=== PATIENT | female | born 1970 | race Caucasian/White ===

== ENCOUNTER 2024-05-28 18:13 | Emergency (ER) | payer OTHER, SELFPAY ==
[2024-05-28 18:21] VITALS: BP 132/86; PULSE 82; TEMP 36.7; O2SAT 96; BMI 28.2
--- NOTE | 2024-05-28 18:47 | ED.GENADUL1 ---
HPI HPI - General Adult General Chief complaint: Headache Stated complaint: HEADACHE Time Seen by Provider: 05/28/24 18:16 Source: patient Mode of arrival: walk-in History of Present Illness HPI narrative: 53-year-old female presents for headache. Its on the left side of her head and it started at 4:00 this morning. No fever or trauma or stiff neck. She has frequent headaches, more than 15 days a month and she is seeing a neurologist in [place]. She states she had an MRI a few months ago that was normal. No weakness or numbness in her extremities. She took some sumatriptan but it did not help. The pain is continuous and moderate to severe. Related Data Home Medications ?Medication ?Instructions ?Recorded ?Confirmed amitriptyline 25 mg tablet 10 mg PO DAILY 05/28/24 05/28/24 estradiol 1 mg tablet 1 mg PO DAILY 05/28/24 05/28/24 rimegepant 75 mg disintegrating 75 mg PO .every other day 05/28/24 05/28/24 tablet (Nurtec ODT) sumatriptan succinate 50 mg tablet 50 mg PO Q2H PRN migraine headache 05/28/24 05/28/24 Allergies Allergy/AdvReac Type Severity Reaction Status Date / Time meloxicam Allergy Severe Blister Verified 05/28/24 18:21 Opioid HPI Opioid Management Most Recent Opioid Data: No Data to Display Review of Systems ROS Narrative A ten point review of systems is negative except as noted above. [facility] Medical History (Updated 05/28/24 @ 18:47 by Ari Zendejas MD) History of migraine headaches ?Z86.69 - Personal history of other diseases of the nervous system and sense organs (ICD-10) History of migraine headaches ?Z86.69 - Personal history of other diseases of the nervous system and sense organs (ICD-10) Exam Narrative Exam Narrative: Nurses note and vital signs reviewed and patient is not hypoxic. General: The patient appears well and in no apparent distress. Patient is resting comfortably on cart. Skin: Warm, dry, no pallor noted. There is no rash noted. Head: Normocephalic, atraumatic Eye: Normal conjunctiva, no drainage Ears, Nose, Mouth, and Throat: oral mucosa is moist. Nares patent. Cardiovascular: Regular Rate and Rhythm Respiratory: Patient is in no distress, no accessory muscle use, lungs are clear to auscultation, no wheezing, rales or rhonchi Back: non-tender, no CVA tenderness bilaterally to percussion. GI: Soft and nontender Musculoskeletal: The patient has no evidence of calf tenderness, no pitting edema, symmetrical pulses noted bilaterally Neurological: Awake alert and oriented. Upper and lower extremity strength intact. Psychiatric: Cooperative Constitutional Vital Signs, click to edit/add: Last Vital Signs Temp 98.1 F 05/28/24 18:21 Pulse 82 05/28/24 18:21 Resp 16 05/28/24 18:21 BP 132/86 05/28/24 18:21 Pulse Ox 96 05/28/24 18:21 O2 Del Method Room Air 05/28/24 18:21 Course Vital Signs Vital signs: Vital Signs Temperature 98.1 F 05/28/24 18:21 Pulse Rate 82 05/28/24 18:21 Respiratory Rate 16 05/28/24 18:21 Blood Pressure 132/86 05/28/24 18:21 Pulse Oximetry 96 05/28/24 18:21 Oxygen Delivery Method Room Air 05/28/24 18:21 Temperature 98.1 F 05/28/24 18:21 Pulse Rate 82 05/28/24 18:21 Respiratory Rate 16 05/28/24 18:21 Blood Pressure 132/86 05/28/24 18:21 Pulse Oximetry 96 05/28/24 18:21 Oxygen Delivery Method Room Air 05/28/24 18:21 Medical Decision Making MDM Narrative Medical decision making narrative: Tests and medications are ordered and the patient is signed out to Dr. Duran at change of shift. Discharge Plan Discharge Patient Disposition: Still a Patient
[2024-05-28] MEDS: MORPHINE SULFATE 4 MG/ML VIAL IV (18:57)
[2024-05-28] MEDS: DIPHENHYDRAMINE HCL 50 MG/ML VIAL 25 MG IV (18:57)
[2024-05-28] MEDS: 0.9 % SODIUM CHLORIDE 1,000 ML 1000 ML IV (18:57)
[2024-05-28] MEDS: METHYLPREDNISOLONE SOD SUCC PF 125 MG/2 ML VIAL IVP (18:57)
[2024-05-28 18:58] LABS: Basophils Percent Auto 0.5 % (0.2-2.0); Eosinophils Absolute Auto 0.2 10^3/uL (0.0-0.7); Eosinophils Percent Auto 2.3 % (0.9-7.0); Hematocrit 39.3 % (36.0-48.0); Immature Granulocytes Abs Auto 0.01 10^3/uL (0.00-0.03); Immature Granulocytes Pct Auto 0.1 % (0.0-0.5); Lymphocytes Absolute Auto 2.4 10^3/uL (1.2-3.8); Mean Corpuscular HGB Conc 33.1 g/dL (29.9-35.2); Mean Corpuscular Hemoglobin 29.1 pg (26.7-34.0); Mean Corpuscular Volume 87.9 fL (81.0-99.0); Mean Platelet Volume 9.5 fL (9.5-13.5); Monocytes Absolute Auto 0.7 10^3/uL (0.3-0.8); Monocytes Percent Auto 9.4 % (1.7-12.0); Neutrophils Absolute Auto 4.3 10^3/uL (1.4-6.5); Neutrophils Percent Auto 56.7 % (43.0-75.0); Platelet Count 299 10^3/uL (150-450); Red Blood Count 4.47 10^6/uL (4.20-5.40); White Blood Count 7.7 10^3/uL (4.0-11.0)
[2024-05-28 19:06] LABS: Anion Gap 10.9; BUN Creatinine Ratio 16.7; Calcium 8.9 mg/dL (8.5-10.1); Carbon Dioxide 30.5 mmol/L (21.0-32.0); Chloride 104 mmol/L (98-107); Estimated GFR (African America >60 (>=60); Estimated GFR (Non-African Ame >60 (>=60); Glucose 110 mg/dL (74-106); Potassium 3.4 mmol/L (3.5-5.1); Sodium 142 mmol/L (136-145)
[2024-05-28 19:26] VITALS: PULSE 80; O2SAT 98
[2024-05-28 20:08] VITALS: BP 137/87; PULSE 76; O2SAT 100
[2024-05-28] MEDS: MAGNESIUM SULFATE IN WATER 2 GM/50 ML PREMIX IV (20:34)
== END 2024-05-28 21:40 | disposition home or self-care (01) ==
PROVIDERS: Emergency Medicine; Emergency Provider Internal Medicine; PCP Family Medicine
DX: G43.909 Migraine, unspecified, not intractable, without status migrainosus (principal)
CPT/HCPCS: 36415; 80048; 85025; 96365; 96375; 99284; J1200; J2270; J2919; J3475